=== PATIENT | male | born 1990 | race Caucasian/White ===

== ENCOUNTER 2025-01-28 13:57 | Emergency (ER) | payer OTHER, SELFPAY ==
[2025-01-28 14:00] VITALS: BP 154/105
--- NOTE | 2025-01-28 14:29 | ED.GENMED ---
History of Present Illness
General
Chief Complaint: Skin Surface Trauma
Time Seen by Provider: 01/28/25 14:05
History of Present Illness
History of Present Illness:
34-year-old male presents for evaluation of a left index finger laceration sustained when he was attempting to achieve his knife. Bleeding is controlled with pressure. Last tetanus unknown
Review of Systems
Review of Systems
Allergies reviewed?: Yes
All Other Systems: ROS reviewed and negative except as documented in HPI and ROS
Phy Exam
Physical Exam
Physical Exam:
GEN: Well appearing, NAD, WDWN
HEENT: Oral mucosa moist, no scleral icterus
Cardiac: Regular rate
Lung: No respiratory distress, no tachypnea
MSK: No gross deformity or injuries
Skin: Good color, no pallor or jaundice, no rashes. 2 cm curvilinear laceration to the left index finger pad, bleeding controlled with pressure, no visible tendon injury or foreign body
Neuro: AO x3, moves all extremities freely
Psych: Calm, cooperative
Course
Vital Signs
Initial and Last Documented VS:
Initial Vital Signs
Temp Pulse Resp BP Pulse Ox
97.6 F 82 16 154/105 98
01/28/25 14:00 01/28/25 14:00 01/28/25 14:00 01/28/25 14:00 01/28/25 14:00
Last Documented Vital Signs
Temp Pulse Resp BP Pulse Ox
97.6 F 82 16 154/105 98
01/28/25 14:00 01/28/25 14:00 01/28/25 14:00 01/28/25 14:00 01/28/25 14:30
Procedures
Laceration Closure
L index finger:
Status of Wound: clean
Size of Wound in cm: 2
Description of Wound Edges: flap-well vascularized
Preparation: cleaned with saline
Anesthesia: 1% Lidocaine and Digital-Regional
Wound exploration: explored to base- no FB and no tendon involvement
Type of Closure: single layer closure
Skin Closure Material: 5-0 nylon
Number of sutures: 4
MDM/Problems Addressed
MDM/Problems Addressed:
Wound repaired with 4 external sutures, no visible tendon injury or foreign body, patient declines tetanus update today
*Pulse Oximetry
SaO2: 98
Oxygen Mode of Delivery: Room air
Patient hypoxic: no
*Critical Care Note
Total Time (30-74mins, 75-104mins- exclusive of procedures): Not Applicable
ED Attending Note
-
Portions of this chart may have been created with voice recognition software.� Occasional wrong word or��sound alike� substitutions may have occurred due to the inherent limitations of voice recognition software.
Discharge Plan
Departure
Patient Disposition: Home (Routine Discharge)
Date of Disposition: 01/28/25
Time of Disposition: 14:29
Patient with high blood pressure during this ER visit?: No
Discharge Problem:
Laceration of left index finger
Instructions: Laceration Repair With Stitches (DC)
Activity Restrictions/Additional Instructions:
Keep dry for the next 24 hours
Begin washing gently with soap and water each day starting tomorrow
Change the dressing every 24 hours until suture removal in 7-10 days
Interventions
Interventions:
*Risk Screen - Suicide Last Done: 01/28/25 14:00
*General Assessment Last Done: 01/28/25 14:00
*Neglect/Abuse Screening Last Done: 01/28/25 14:00
*ED- Fall Risk Assessment Last Done: 01/28/25 14:41
*ED COVID-19 Vaccine History Last Done: 01/28/25 14:00
*ED Influenza Vaccine History Last Done: 01/28/25 14:00
*Nursing Disposition Last Done: 01/28/25 14:41
ED-Skin Assessment Last Done: 01/28/25 14:13
Discharge Date and Time
Discharge Date/Time: 01/28/25 14:42
Print Language: MOROCCAN
== END 2025-01-28 14:42 | disposition home or self-care (01) ==
LOC: EMR 13:57
PROVIDERS: EMERGENCY PHYSICIAN Emergency Medicine
DX: S61.211A Laceration without foreign body of left index finger without damage to nail, initial encounter (principal); W26.0XXA Contact with knife, initial encounter
CPT/HCPCS: 99282; 12001